=== PATIENT | female | born 1985 | race Caucasian/White ===

== ENCOUNTER 2018-02-03 18:06 | Observation (INO) ==
[2018-02-04] MEDS ORDERED: Morphine Inj 4 MG/ML Vial IV.PUSH PRN ×2 (01:09→03:32)
[2018-02-04] MEDS ORDERED: Bisacodyl 10 MG Supp RECTAL PRN (01:09)
[2018-02-04] MEDS ORDERED: Acetaminophen 325 MG Tablet PO PRN (01:09)
[2018-02-04] MEDS: Sod Chloride 0.9% Inj 1,000 ML IV.CONT SCH ×2 (01:52→11:54)
--- NOTE | 2018-02-04 03:01 | P.HPIM ---
History of Present Illness Service: [facility] Primary Care Physician: Chris Youngblood MD Chief Complaint: back pain History of Present Illness: 32 y/o female with a history of migraines and fibromyalgia presented to the ED with complaints of abdominal/back pain. She states the pain is constant stabbing in her left back, 10/10, with radiation to her abdomen, with associated headache, and nausea, worse with movement, slightly better with pain medication. She denies any fever, chills, sob, chest pain or dysuria. Review of Systems Review of Systems: all other systems reviewed are negative PMFSH History History Provided By: Patient Medical History Medical History Fibromyalgia (Acute) Headache (Acute) Surgical History Surgical History History of endometrial ablation (Acute) Hx of section (Acute) Hx of tubal ligation (Acute) Social History Social History Substance History: No History of Abuse Second Hand Smoke Exposure: No Smoking Status: Never smoker How Often Do You Have a Drink Containing Alcohol: 2 to 3 times a week Recent Travel in [place] within the Last 8 Weeks: No Recent Out of Country Travel within the Last 8 Weeks: No Medications and Allergies Allergies Allergy/AdvReac Type Severity Reaction Status Date / Time Sulfa (Sulfonamide Allergy Severe Nausea/Vomi Verified 02/03/18 18:35 Antibiotics) ting Home Medications Medication Instructions Recorded Confirmed Type nortriptyline 100 mg PO DAILY 02/03/18 02/04/18 History Active Medications: Active Medications Acetaminophen (Tylenol) 650 mg PO Q4H PRN PRN Reason: Temp > 100.4 Al Hydroxide/Mg Hydroxide (Milk Of Magnesia Liq) 30 ml PO Q12H PRN PRN Reason: Mild Constipation Bisacodyl (Dulcolax Supp) 10 mg RECTAL DAILY PRN PRN Reason: SEVERE CONSITIPATION Sodium Chloride (Ns Inj) 1,000 mls @ 100 mls/hr IV.CONT .Q10H NATALIE Last Admin: 02/04/18 01:52 Dose: 100 mls/hr Lactulose (Lactulose Liq) 30 ml PO DAILY PRN PRN Reason: SEVERE CONSITIPATION Morphine Sulfate (Morphine Inj) 2 mg IV.PUSH Q3H PRN PRN Reason: pain 1 -10 Last Admin: 02/04/18 01:52 Dose: 2 mg Ondansetron HCl (Zofran Inj) 4 mg IV.PUSH Q6H PRN PRN Reason: NAUSEA OR VOMITING Sennosides (Senokot) 17.2 mg PO Q12H PRN PRN Reason: Moderate Constipation Sodium Chloride (Ns Flush) 2 ml IV.FLUSH BID NATALIE Sodium Chloride (Ns Flush) 2 ml IV.FLUSH PRN PRN PRN Reason: FLUSH AFTER USING IV ACCESS Physical Exam Vital signs: Last Vital Signs Temp 98.3 F 02/04/18 01:57 Pulse 98 H 02/04/18 01:57 Resp 16 02/04/18 01:57 BP 130/85 02/04/18 01:57 Pulse Ox 99 02/04/18 01:57 Intake & Output 02/01/18 02/02/18 02/03/18 02/04/18 06:59 06:59 06:59 06:59 Weight 78.6 kg Narrative: GENERAL: well nourished patient who appears in pain sitting in bed SKIN: Warm and dry. HEAD: Normocephalic. EYES: No scleral icterus. No injection or drainage. NECK: Supple, trachea midline. No JVD or lymphadenopathy. CARDIOVASCULAR: Regular rate and rhythm without murmurs, gallops, or rubs. RESPIRATORY: Breath sounds equal bilaterally. No accessory muscle use. GASTROINTESTINAL: Abdomen soft, defuse tenderness, nondistended. MUSCULOSKELETAL: No cyanosis, or edema. BACK: Nontender without obvious deformity. Left CVA tenderness. Caprini VTE Risk Assessment Caprini VTE Risk Assessment: No/Low Risk (score <= 1) Caprini Risk Assessment Model: Point Value = 1 Point Value = 2 Point Value = 3 Point Value = 5 Age 41-60 Minor surgery BMI > 25 kg/m2 Swollen legs Varicose veins or History of unexplained or recurrent spontaneous Oral contraceptives or hormone replacement Sepsis (< 1 month) Serious lung disease, including pneumonia (< 1 month) Abnormal pulmonary function Acute myocardial infarction Congestive heart failure (< 1 month) History of inflammatory bowel disease Medical patient at bed rest Age 61-74 Arthroscopic surgery Major open surgery (> 45 min) Laparoscopic surgery (> 45 min) Malignancy Confined to bed (> 72 hours) Immobilizing plaster cast Central venous access Age >= 75 History of VTE Family history of VTE Factor V Leiden Prothrombin [id number] Lupus anticoagulant Anticardiolipin antibodies Elevated serum homocysteine Heparin-induced thrombocytopenia Other congenital or acquired thrombophilia Stroke (< 1 month) Elective arthroplasty Hip, pelvis, or leg fracture Acute spinal cord injury (< 1 month) Prophylaxis Regimen: Total Risk Factor Score Risk Level Prophylaxis Regimen 0-1 Low Early ambulation 2 Moderate Order ONE of the following: *Sequential Compression Device (SCD) *Heparin 5000 units SQ BID 3-4 Higher Order ONE of the following medications: *Heparin 5000 units SQ TID *Enoxaparin/Lovenox 40 mg SQ daily (WT < 150 kg, CrCl > 30 mL/min) *Enoxaparin/Lovenox 30 mg SQ daily (WT < 150 kg, CrCl > 10-29 mL/min) *Enoxaparin/Lovenox 30 mg SQ BID (WT < 150 kg, CrCl > 30 mL/min) AND/OR *Sequential Compression Device (SCD) 5 or more Highest Order ONE of the following medications: *Heparin 5000 units SQ TID (Preferred with Epidurals) *Enoxaparin/Lovenox 40 mg SQ daily (WT < 150 kg, CrCl > 30 mL/min) *Enoxaparin/Lovenox 30 mg SQ daily (WT < 150 kg, CrCl > 10-29 mL/min) *Enoxaparin/Lovenox 30 mg SQ BID (WT < 150 kg, CrCl > 30 mL/min) AND *Sequential Compression Device (SCD) Assessment and Plan Plan 32 y/o female with a history of migraines and fibromyalgia presented to the ED with complaints of abdominal pain. Nephrolithiasis with hydronephrosis UA shows a dirty catch, hold on antibiotics for now Abdominal CT reviewed and shows a 5 mm calculus at the left ureteropelvic junction with mild left hydronephrosis. -Consult urology for evaluation -IVF for hydration -Pain management with IV morphine Fibromyalgia, chronic -Resume home medications DVT prophylaxis: SCDs H&P: Quality VTE Deep Vein Thrombosis/Pulmonary Embolism Present on Admission: No
[2018-02-04] MEDS ORDERED: Ibuprofen 400 MG Tablet PO ONE (03:27)
[2018-02-04] MEDS ORDERED: Morphine Inj 4 MG/ML Vial IV.PUSH ONE (03:31)
[2018-02-04 04:56] LABS: Baso % (Auto) 0.3 % (0.0-2.0); Eos % (Auto) 0.3 % (0.0-4.0); Hematocrit 36.6 % (35.0-46.0); Hemoglobin 12.6 gm/dL (11.6-15.3); Lymph # (Auto) 1.2 th/mm3 (1.0-4.8); Lymph % (Auto) 9.7 % (9.0-44.0); Mean Corpuscular HGB Conc 34.4 % (32.0-36.0); Mean Corpuscular Hemoglobin 28.7 pg (27.0-34.0); Mean Corpuscular Volume 83.3 fL (80.0-100.0); Mean Platelet Volume 8.2 fL (7.0-11.0); Mono # (Auto) 1.2 th/mm3 (0.0-0.9); Mono % (Auto) 10.2 % (0.0-8.0); Neut # (Auto) 9.6 th/mm3 (1.8-7.7); Neut % (Auto) 79.5 % (16.0-70.0); Platelet Count 212 th/mm3 (150-450); Red Cell Distribution Width 12.8 % (11.6-17.2)
[2018-02-04 05:22] LABS: Anion Gap 8 meq/L (5-15); Blood Urea Nitrogen 7 mg/dL (7-18); Calcium 8.3 mg/dL (8.5-10.1); Carbon Dioxide 24.2 meq/L (21.0-32.0); Chloride 106 meq/L (98-107); Glomerular Filtration Rate Greater Than 89 mL/min (>89); Glucose,Random 118 mg/dL (74-106); Potassium 3.2 meq/L (3.5-5.1); Sodium 138 meq/L (136-145)
[2018-02-04] MEDS ORDERED: Nortriptyline 25 MG Capsule PO SCH (09:00)
[2018-02-04 12:51] VITALS: RESP 16
--- NOTE | 2018-02-04 15:28 | P.CONURO ---
History of Present Illness Service: Urology Consult date: 02/04/18 Requesting Physician: Alyssa Plunkett Reason for Consult: Renal stone Primary Care Provider: Chris Youngblood MD Chief Complaint: back pain History of Present Illness: 32 y/o female with a history of migraines and fibromyalgia presented to the ED with complaints of abdominal/back pain. She states the pain is constant stabbing in her left back, 10/10, with radiation to her abdomen, with associated headache, and nausea, worse with movement, slightly better with pain medication. She denies any fever, chills, sob, chest pain or dysuria. CT scan showed a 5 mm Left UPJ stone with mild hydro. Urology consulted Pt was seen at ER this afternoon. She has no previous history. She feels better, pain is 2/10, dull. No f/c/n/v. Labs are stable. Discussed with pt treatment of stones. She feels better now and agrees to be d/c and see us in clinic tomorrow AM. Review of Systems All other systems reviewed negative except as stated in HPI PMFSH - History History Provided By: Patient - Medical History Medical History: Medical History (Last Reviewed 02/04/18 @ 03:08 by PAYTON Matthew) Fibromyalgia Headache - Surgical History Surgical History: Surgical History (Last Reviewed 02/04/18 @ 03:08 by PAYTON Matthew) History of endometrial ablation Hx of section Hx of tubal ligation - Family History Family History: Family History (Last Reviewed 02/03/18 @ 19:50 by PAYTON Larkin) Grandparent Breast cancer - Tobacco History Second Hand Smoke Exposure: No Tobacco Use In Past 30 Days: No Smoking Status: Never smoker - Alcohol History How Often Do You Have a Drink Containing Alcohol: 2 to 3 times a week - Substance Use History Substance History: No History of Abuse - Travel History Recent Travel in the [place] Within the Last 8 Weeks: No Recent Travel Out of the Country Within the Last 8 Weeks: No Medications and Allergies Active Medications: Active Medications Acetaminophen (Tylenol) 650 mg PO Q4H PRN PRN Reason: Temp > 100.4 Last Admin: 02/04/18 12:25 Dose: 650 mg Al Hydroxide/Mg Hydroxide (Milk Of Magnesia Liq) 30 ml PO Q12H PRN PRN Reason: Mild Constipation Bisacodyl (Dulcolax Supp) 10 mg RECTAL DAILY PRN PRN Reason: SEVERE CONSITIPATION Sodium Chloride (Ns Inj) 1,000 mls @ 100 mls/hr IV.CONT .Q10H [facility] Last Admin: 02/04/18 11:54 Dose: 100 mls/hr Lactulose (Lactulose Liq) 30 ml PO DAILY PRN PRN Reason: SEVERE CONSITIPATION Morphine Sulfate (Morphine Inj) 4 mg IV.PUSH Q3H PRN PRN Reason: pain 1 -10 Nortriptyline HCl (Pamelor) 100 mg PO DAILY [facility] Last Admin: 02/04/18 09:08 Dose: 100 mg Ondansetron HCl (Zofran Inj) 4 mg IV.PUSH Q6H PRN PRN Reason: NAUSEA OR VOMITING Last Admin: 02/04/18 11:30 Dose: 4 mg Sennosides (Senokot) 17.2 mg PO Q12H PRN PRN Reason: Moderate Constipation Sodium Chloride (Ns Flush) 2 ml IV.FLUSH BID [facility] Last Admin: 02/04/18 09:07 Dose: Not Given Sodium Chloride (Ns Flush) 2 ml IV.FLUSH PRN PRN PRN Reason: FLUSH AFTER USING IV ACCESS Allergies Allergy/AdvReac Type Severity Reaction Status Date / Time Sulfa (Sulfonamide Allergy Severe Nausea/Vomi Verified 02/03/18 18:35 Antibiotics) ting Home Medications Medication Instructions Recorded Confirmed Type nortriptyline 100 mg PO DAILY 02/03/18 02/04/18 History Physical Exam Vital Signs - 24 hr 02/04/18 01:57 02/04/18 03:34 02/04/18 09:31 Temperature 98.3 F 99.7 F H 97.7 F Pulse Rate 98 H 114 H 87 Respiratory Rate 16 16 17 Blood Pressure 130/85 141/82 H 114/76 Pulse Oximetry 99 98 98 02/04/18 11:27 02/04/18 12:48 Temperature 99.6 F 101.3 F H Pulse Rate 127 H Respiratory Rate 16 Blood Pressure 143/85 H Pulse Oximetry 98 Physical Exam: GENERAL: This is a well-nourished, well-developed patient, in no apparent distress. SKIN: No rashes, ecchymoses or lesions. Cool and dry. HEAD: Atraumatic. Normocephalic. CARDIOVASCULAR: Regular rate and rhythm without murmurs, gallops, or rubs. RESPIRATORY: Clear to auscultation. Breath sounds equal bilaterally. No wheezes , rales, or rhonchi. GASTROINTESTINAL: Abdomen soft, non-tender, nondistended. GENITOURINARY: No CVAT MUSCULOSKELETAL: Extremities without clubbing, cyanosis, or edema. NEUROLOGICAL: Awake and alert. Laboratory Results - last 24 hr 02/04/18 02/04/18 04:37 04:37 WBC 12.0 H RBC 4.40 Hgb 12.6 Hct 36.6 MCV 83.3 MCH 28.7 MCHC 34.4 RDW 12.8 Plt Count 212 MPV 8.2 Neut % (Auto) 79.5 H Lymph % (Auto) 9.7 [place] % (Auto) 10.2 H Eos % (Auto) 0.3 Baso % (Auto) 0.3 Neut # (Auto) 9.6 H Lymph # (Auto) 1.2 [place] # (Auto) 1.2 H Eos # (Auto) 0.0 Baso # (Auto) 0.0 WBC Differential . Differential Comment Auto diff final Sodium 138 Potassium 3.2 L Chloride 106 Carbon Dioxide 24.2 Anion Gap 8 BUN 7 Creatinine 0.66 Estimated GFR Greater than 89 Random Glucose 118 H Calcium 8.3 L Result Diagrams: 02/04/18 04:37 02/04/18 04:37 Assessment and Plan - Plan 32y.o F with Left 5mm UPJ stone with mild hydro - No acute intervention needed pt is feeling better - She can be d/c home with Toradol 10mg q6h, antbx and flomax qd. Needs to drink more fluids and strain urine at home - She needs to see Dr Andrade in clinic tomorrow AM for further management Discussed Condition With: Dr Lupe GARCIA attending and Pt's RN
[2018-02-04 16:57] VITALS: BP 128/83; PULSE 102; TEMP 98.3; O2SAT 99
== END 2018-02-04 18:47 | disposition home or self-care (01) ==
LOC: NEPFCDU 02-04 00:20 → NEDDLT 02-04 00:20
PROVIDERS: ADMIT Internal Medicine; ATTEND Internal Medicine